=== PATIENT | female | born 1995 | race Caucasian/White ===

== ENCOUNTER 2016-10-10 14:51 | Emergency (ER) | payer OTHER ==
[2016-10-10 14:55] VITALS: BP 129/73; PULSE 111; RESP 16; O2SAT 100
[2016-10-10 15:15] VITALS: BP 136/86; PULSE 96; RESP 24; O2SAT 95
--- NOTE | 2016-10-10 15:17 | ED.REPORT ---
HPI-Seizure Date of Service Oct 10, 2016 ED Provider: Rashawn Marcial MD History of Present Illness: DANIEL Pt is a 21 y/o female w/ a hx of polysubstance abuse, partial complex seizures, presenting to the ED via EMS due to possible seizure which occurred prior to arrival. The patient woke up and felt nauseous and went to Urgent Care. When she was there she experienced a witnessed tonic-clonic seizure with associated incontinence and was sent here. The patient has no history of seizures although she does state she has a memory problem. She has no history of medical problems , takes no medications, has had no surgeries. She does drink alcohol and had a drink last night. She smokes marijuana but does not use other drugs. History difficult to obtain due to current mental state. Nursing Notes Stated Complaint: SEIZURES Chief Complaint: Seizure Nursing Notes Reviewed: Yes ([employer], blank, meds not reconciled) Allergies: Coded Allergies: No Known Allergies (Unverified , 10/10/16) Scheduled Levetiracetam (Levetiracetam) 500 Mg Tablet 500 MG PO BID Scheduled PRN Ondansetron ODT (Ondansetron ODT) 8 Mg Tab.rapdis 8 MG PO Q4H PRN PRN For Nausea General Time Seen by Provider: 15:56 Chief Complaint Chief Complaint: Seizure, generalized Hx Obtained From: Patient, EMS Unable to Obtain Hx: Patient condition Arrived By: Ambulance Onset Occurred: Just prior to arrival Symptom Duration: 1 - 15 minutes Severity: Current: No pain currently Severity: Maximum: No pain Similar Sx Previous: No Past Medical History Past Medical History Notes: Neurologist: Mack Westfall Past Medical History h/o "memory issues" (complex partial seizures per neurology note from the [facility] dated March 2016 - patient is status post MRI with and without contrast, and EEG (" normal awake and Stage 2 sleep EEG 03/2016) History of anxiety h/o bulimea Reports: Asthma Past Surgical History None in EMR from [facility] Smoking History Current Every Day Smoker, Unknown if Ever Smoker Social History Intake from [facility] indicates "variable sporadic pattern of use of cocaine, Percocet, OxyContin, Dian, ecstasy, Adderall, acid, mushrooms, DM T-but denies heroine or benzo or ketamine use, denies seeking drugs but will "use whatever is around and easy to access" and that "I have gone months without any drugs or alcohol and is never made any difference in my issues" Alcohol Use: "Social" Ambulatory Status Independent Review of Systems Unable to Obtain ROS Patient condition (Difficult to obtain) Neurologic: Reports: Bladder dysfunction, Change LOC, Confusion, Seizure Complete sys rev & neg: except as marked. Physical Exam Initial Vital Signs Vital Signs (First) Date Time Temp Pulse Resp B/P Pulse Ox O2 Delivery O2 Flow Rate FiO2 10/10/16 14:55 36.4 111 16 129/73 100 Room Air Initial VS: Reviewed, Vital signs abnormal Head / Eyes: Atraumatic, Normocephalic, PERRL Abdomen / GI: Soft, Non-tender, No guarding, No rebound, No distention Extremities: Vascular intact, Neuro intact, No swelling, No tenderness Skin: Warm, Dry, No cyanosis Psychiatric: Mood/affect normal, Behavior normal, Normal thought content General/Constitutional: Awake, Alert, Well appearing, Cooperative, Not toxic appearing Neck: Atraumatic, Supple, No meningismus, Full range of motion Respiratory / Chest: Breath sounds NL, Breath sounds = bilat, No respiratory distress, No rales, No rhonchi, No wheezing, No retractions, No stridor Cardiovascular: Heart rate NL, Regular rhythm, Heart sounds NL, No gallop, No murmurs, No rubs Neurologic: Oriented X3, Speech NL, No motor deficits, No sensory deficits No focal deficits Amnestic and slightly slow to answer consistent with mild post-ictal phase - improving ENT: Airway patent, Mucous membranes moist Contusion over tip of tongue Interpretation & Diagnostics Lab Results Interpretation Result Diagram: 10/10/16 1705 10/10/16 1705 Test 10/10/16 17:05 10/10/16 17:35 White Blood Count 14.1th/mm3 (3.8-10.1) Red Blood Count 4.57mil/mm3 (3.90-5.20) Hemoglobin 13.5g/dL (12.0-15.6) Hematocrit 39.9% (35.0-46.0) Mean Corpuscular Volume 87.3fL (81-100) Mean Corpuscular Hemoglobin 29.5pg (27.0-35.0) Mean Corpuscular Hemoglobin Concent 33.8% (32.0-37.0) Red Cell Distribution Width 13.0% (12.3-15.4) Platelet Count 150bil/L (150-400) Neutrophils (%) (Auto) 89.1% (40-74) Lymphocytes (%) (Auto) 5.2% (14-46) Monocytes (%) (Auto) 4.8% (4-12) Eosinophils (%) (Auto) 0.4% (0-5) Basophils (%) (Auto) 0.1% (0-3) Sodium Level 137mEq/L (134-144) Potassium Level 3.4mEq/L (3.5-5.2) Chloride Level 103mEq/L (97-108) Carbon Dioxide Level 20mmol/L (18-29) Blood Urea Nitrogen 9mg/dL (6-20) Creatinine 0.60mg/dL (0.57-1.00) Estimat Glomerular Filtration Rate 177mL/min (>59) Glucose Level 104mg/dL (60-99) Calcium Level 9.4mg/dL (8.5-10.1) Total Bilirubin 0.5mg/dL (0.0-1.2) Aspartate Amino Transf (AST/SGOT) 25U/L (0-50) Alanine Aminotransferase (ALT/SGPT) 16U/L (0-32) Alkaline Phosphatase 62U/L (25-150) Total Protein 7.4g/dL (6.4-8.4) Albumin 4.4g/dL (3.4-5.0) Lipase 15U/L (13-60) Human Chorionic Gonadotropin, Qual Negative (Negative) Hold Serna Top Tube Received (Received) Alcohols < 10mg/dL (0-10) Urine Color Yellow (YELLOW) Urine Appearance Hazy (CLEAR,HAZY) Urine pH 7.0 (5.0-8.0) Urine Specific [place] 1.015 (1.003-1.035) Urine Protein Negativemg/dL (NEG,TRACE) Urine Glucose (UA) Negativemg/dL (NEGATIVE) Urine Ketones 15mg/dL (NEGATIVE) Urine Occult Blood Negative (NEGATIVE) Urine Nitrite Negative (NEGATIVE) Urine Bilirubin Negative (NEGATIVE) Urine Urobilinogen Normalmg/dL (NORMAL) Urine Leukocyte Esterase Trace (NEGATIVE) Urine RBC 0-2/hpf (0-2) Urine WBC 6-10/hpf (0-5) Urine Epithelial Cells Many/hpf (NONE-MOD) Urine Crystals None seen (NONE SEEN) Urine Bacteria Many/hpf (NONE-FEW) Urine Hyaline Casts None/lpf (NONE) Urine Granular Casts None seen (NONE SEEN) Urine Waxy Casts None seen (NONE SEEN) Urine Red Blood Cell Casts None seen (NONE SEEN) Urine White Blood Cell Casts None seen (NONE SEEN) Urine Mucus None seen (None Seen) Urine Trichomonas None seen (NONE SEEN) Urine Yeast None (NONE SEEN) Urinalysis Comment None Urine Culture Reflexed Indicated Lab Results Interpretation: CBC mild leukocytosis CMP normal negative CT Head Interpretation IMPRESSION: 1. No acute intracranial process. Dictated by: Mami Carey M.D. on 10/10/2016 at 18:18 Approved by: Mami Carey M.D. on 10/10/2016 at 18:19 Study: Head CT no contrast Interpretation / Wet Read by: Interpret - Radiologist Re-Eval/Medical Decision Med Decision/Clinical Course This is a 21-year-old female sent from the PCP office with a witnessed seizure at the doctor's office. The patient presented complaining of nausea and vomiting of one day duration and had a seizure in the office. She is then transferred. Apparently was brief lasting a minute or 2, but the patient still confused, post-ictal and can not provide much history. On exam she is postictal, amnestic to most events, initially denied any seizure disorder-however records were ultimately obtain the indicate the patient's had several events and episodes on a recurring basis for which there is a concern for an underlying seizure disorder. She seen a neurologist and underwent an extensive workup including MRI and EEG without definitive pathology identified, but with concern for an underlying seizure disorder remaining. The patient apparently was offered seizure medications, but declined due to concern over side effects at that time and the risk-benefit ratio. The episodes recently, and her mother who does well indicates that there has been ongoing concern that these are seizures. Sounds are clear to separate events once the nausea vomiting today, the patient' s abdominal exam is soft nontender, without signs of acute surgical abdomen. She is not . Labs notable for mild leukocytosis likely stress-induced secondary seizures there is no clinical findings to indicate CT imaging or acute surgical or bacterial infectious etiology. Patient received and medics with marked improvement. She now wishes to go home. However after discussion with the mother and further thought, she would like to consider being started on any seizure medicine, so the end of written a prescription for Keppra 500 mg twice a day to start, recommended the patient follow-up with the PCP for further evaluation. The patient is discharged with some advanced traumas well. Routine return precautions reviewed. Patient is discharged in improved condition. Source of Hx: Old records Re-Evaluation/Progress : Time of Eval: 19:13 Re-Evaluation/Progress Note: Pt rechecked. Much more alert now. Mother is in the room and says that there have been similar events previously at which time they declined seizure meds but she is willing to begin them now. Differential Diagnosis: Positive: Seizure disorder, Negative: Anticonvulsant withdrawal, Closed head injury, Drug overdose, Eclampsia, Encephalitis, Hyponatremia, Intracranial bleed, Intracranial mass/ lesion, Meningitis, Pseudoseizure Counseled Regarding: Diagnosis, Lab results, Need for follow-up, When/why to return to ED Discharge & Departure Impression: Primary Impression: Seizure Additional Impression: Vomiting Vomiting type: unspecified Vomiting Intractability: non-intractable Nausea presence: with nausea Qualified Code: R11.2 - Nausea with vomiting, unspecified Disposition: Home Discharge Condition All VS Reviewed: Yes Condition: Stable Patient Instructions: Generalized Tonic Clonic Seizures (ED) Additional Instructions: 1. A dangerous cause of the vomiting was not identified. 2. You had a seizure at the doctor's office today and were sent to the ED. 3. NO driving as before. 4. You can take ondansetron 8mg (let dissolve underneath the tongue) up to every 4 hours if needed for nausea. 5. I have written for a seizure medication: levitiracetam (Keppra) 500mg twice a day. This medication can cause some mild drowsiness (it is unusual at this low dose and is generally well tolerated.) 6. Follow up with your regular provider. 7. Return if new or worsening symptoms. Referrals: Johnna Thurston Attestation Portions of this note were transcribed by Jd Thapa. I, Dr. Marcial personally performed the history, physical exam and medical decision-making; I reviewed and confirmed the accuracy of the information in the transcribed note. Signed by Dru Mayer, 10/10/16 - 1600 copies to: Johnna Thurston Matthew F MD Oct 10, 2016 15:17 JD THAPA Oct 10, 2016 15:25
[2016-10-10] MEDS ORDERED: Ondansetron 2 mg/mL 2 mL Inj ONE (15:30)
[2016-10-10] MEDS ORDERED: Ondansetron 2 mg/mL 2 mL Inj IVPUSH ONE (15:45)
[2016-10-10] MEDS ORDERED: Promethazine Inj 12.5 MG in Dextrose 5%-Pha MIX 50 ML IV ONE (15:55)
[2016-10-10] MEDS ORDERED: 0.9% Sodium Chloride 1,000 ML IV ONE ×2 (15:55)
[2016-10-10 16:30] VITALS: BP 103/89; PULSE 96; O2SAT 99
[2016-10-10 17:15] LABS: BASOPHILS % (AUTO) 0.1 % (0-3); EOSINOPHILS % (AUTO) 0.4 % (0-5); MONOCYTES % (AUTO) 4.8 % (4-12); Mean Corpuscular Hemoglobin 29.5 pg (27.0-35.0); Mean Corpuscular Volume 87.3 fL (81-100); NEUTROPHILS % (AUTO) 89.1 % (40-74); Platelet Count 150 bil/L (150-400)
[2016-10-10 17:53] LABS: APPEARANCE,URINE HAZY (CLEAR,HAZY); COLOR,URINE YELLOW (YELLOW)
[2016-10-10 17:54] LABS: OCCULT BLOOD,URINE NEGATIVE (NEGATIVE); UROBILINOGEN,URINE NORMAL (NORMAL)
[2016-10-10 17:56] LABS: Lipase 15 U/L (13-60)
--- NOTE | 2016-10-10 18:21 | DRSVH ---
PROCEDURE: CT BRAIN WITHOUT CONTRAST ([id number]) INDICATIONS: New onset seizure TECHNIQUE: Noncontrast 4.5 mm thick angled axial sections acquired from the foramen magnum to the vertex, with c oronal reformats. COMPARISON: None. FINDINGS: Image quality: Excellent. CSF spaces: Basal cisterns are patent. No extra-axial fluid collections. Ventricles are normal in size and shape. Brain: No midline shift. No intracranial masses or hemorrhage. Castro-white matter interface is norm al. Skull and face: Calvarium and visualized facial bones are intact, without suspicious lesions. Sinuses: Visualized sinuses and mastoids are clear. IMPRESSION: 1. No acute intracranial process. Dictated by: Mami Carey M.D. on 10/10/2016 at 18:18 Approved by: Mami Carey M.D. on 10/10/2016 at 18:19
[2016-10-10 18:53] VITALS: BP 100/63; PULSE 72; O2SAT 100
[2016-10-10] MEDS ORDERED: ONDA8TAB10 PO (19:21)
[2016-10-10] MEDS ORDERED: LEVE500T3 PO (19:21)
== END 2016-10-10 19:46 | disposition home or self-care (01) ==
LOC: SED 14:51 → EDBD 14:51 → SED 19:46
DX: R56.9 Unspecified convulsions (principal); S00.532A Contusion of oral cavity, initial encounter; X58.XXXA Exposure to other specified factors, initial encounter; Y93.89 Activity, other specified; Y92.89 Other specified places as the place of occurrence of the external cause; Y99.8 Other external cause status; R11.2 Nausea with vomiting, unspecified; R32 Unspecified urinary incontinence; J45.909 Unspecified asthma, uncomplicated; F17.200 Nicotine dependence, unspecified, uncomplicated
CPT/HCPCS: 36415; 70450; 80053; 81000; 81002; 83690; 84703; 85025; 87086; 87088; 96361; 96374; 96375; 99285; G0480; J2060; J2405; J2550; J7030